=== PATIENT | female | born 1940 | race Caucasian/White ===

== ENCOUNTER → 2017-03-26 | Outpatient (CLI) | payer MEDICARE, OTHER ==
[~2017-03-26] MED LIST: LEVEMIR FL100 UNIT/1 SQ; LIPITOR20 MG PO; MEVACOR40 MG PO; OMEPRAZOLE 20 M20 M1 PO
== END ==
LOC: M.RAD 03-13 11:26
DX: Z12.31 Encounter for screening mammogram for malignant neoplasm of breast (principal); M81.0 Age-related osteoporosis without current pathological fracture; M85.80 Other specified disorders of bone density and structure, unspecified site; Z78.0 Asymptomatic menopausal state

== ENCOUNTER 2020-08-17 15:23 | Emergency (ER) | payer MEDICARE, OTHER ==
[~2020-08-17] VITALS: Ht 147.3 cm; Wt 50.8 kg
[2020-08-17] MEDS ORDERED: METFORMIN HCL500 M3 PO (15:48)
[2020-08-17] MEDS ORDERED: LISINOPRIL10 MG PO (15:48)
[2020-08-17] MEDS ORDERED: CALCIUM500 MG PO (15:49)
[2020-08-17] MEDS ORDERED: NEXIUM10 MG PO (15:49)
[2020-08-17 16:35] LABS: URINE BILIRUBIN NEGATIVE (Negative); URINE BLOOD NEGATIVE (Negative); URINE CLARITY HAZY; URINE COLOR YELLOW; URINE GLUCOSE-RANDOM NEGATIVE (Negative); URINE KETONES TRACE (Negative); URINE LEUKOCYTES-REFLEX 1+ (Negative); URINE NITRITE-REFLEX NEGATIVE (Negative); URINE PROTEIN 1+ (Negative); URINE SPECIFIC GRAVITY >= 1.030 (1.005-1.030); URINE UROBILINOGEN 0.2 E.U./dl (0.2-1.0)
[2020-08-17 16:43] LABS: ABSOLUTE EOSINOPHILS 0.1 thou/uL (0.0-0.7); ABSOLUTE LYMPHOCYTES 2.4 thou/uL (0.8-5.3); ABSOLUTE MONOCYTES 0.5 thou/uL (0.0-1.2); ABSOLUTE NEUTROPHILS 4.5 thou/uL (1.6-8.1); BASOPHILS 0.2 %; EOSINOPHILS 0.9 %; HEMATOCRIT 35.8 % (37.0-47.0); HEMOGLOBIN 11.8 gm/dL (12.0-15.0); LYMPHOCYTES 32.5 %; MCH 28.1 pg (26.0-34.0); MCHC 32.9 g/dL (28.0-37.0); MCV 85.3 fL (80.0-100.0); MPV 7.9 fl. (7.2-11.1); NUCLEATED RBCS 0 /100WBC; PLATELET COUNT* 208 thou/uL (150-400); POLYS 59.4 %; RDW-CV 14.6 % (10.5-14.5); WBC 7.5 thou/uL (4.0-11.0)
[2020-08-17 16:43] LABS: BACTERIA-REFLEX None Seen /HPF (None Seen); CASTS None Seen /LPF (None Seen); CRYSTALS None Seen /LPF (None Seen); SQUAMOUS 4-10 Moderate /LPF (0-3); URINE RBC None Seen /HPF (0-2); URINE WBC-REFLEX 0-5 Rare /HPF (0-5)
[2020-08-17 17:26] LABS: CALCIUM 8.7 mg/dL (8.5-10.1); CREATININE 1.1 mg/dL (0.6-1.3); POTASSIUM 4.4 mmol/L (3.5-5.1)
[2020-08-17 17:31] LABS: ALBUMIN 3.5 g/dL (3.4-5.0); TOTAL BILIRUBIN 0.3 mg/dL (<0.1-1.0); TOTAL PROTEIN 7.3 g/dL (6.4-8.2)
[2020-08-17] MEDS ORDERED: ONDANSETRON HCL4 M2 PO (17:49)
[2020-08-17 18:13] VITALS: BP 164/76
--- NOTE | 2020-08-18 13:58 | EKG ---
[place] [address] ELECTROCARDIOGRAM REPORT Name: TRE COE Room: [facility]#: [id number] Admission: 08/17/20 Attend Phys: Discharge: 08/17/20 Date of : 40 Date of Service: 08/17/20 1618 Report #: [id number] THIS REPORT FOR: //name// [facility] ED Test Date: 2020-08-17 Test Time: 16:18:24 Pat Name: TRE COE Department: Room: Gender: F Computer Application Developer: : [id number] Requested By: Eunice Payton Order Number: [id number] MD: Young Siddiqui Measurements Intervals [place] Rate: 88 P: 50 [place]: 140 QRS: -31 QRSD: 88 T: 48 QT: 360 QTc: 436 Interpretive Statements Sinus rhythm Left anterior fascicular block No previous ECG available for comparison Electronically Signed On 08-18-2020 13:58:32 CDT by Young Siddiqui [email or web address] <ELECTRONICALLY SIGNED> By: Young Siddiqui MD, [facility] 08/18/20 1358 1618 1618 Young Siddiqui MD, [facility] /EPI
== END 2020-08-17 18:14 | disposition home or self-care (01) ==
LOC: M.ERS 15:23
PROVIDERS: Physician Assistant
DX: U07.1 COVID-19 (principal); R11.0 Nausea; E11.9 Type 2 diabetes mellitus without complications; Z88.8 Allergy status to other drugs, medicaments and biological substances; Z98.890 Other specified postprocedural states; E78.00 Pure hypercholesterolemia, unspecified; Z90.49 Acquired absence of other specified parts of digestive tract; Z90.710 Acquired absence of both cervix and uterus; Z79.4 Long term (current) use of insulin